=== PATIENT | male | born 1975 | race African-American/Black ===

== ENCOUNTER 2017-03-27 00:20 | Emergency (ER) | payer OTHER ==
[~2017-03-27] VITALS: Ht 170.2 cm; Wt 83.9 kg
--- NOTE | 2017-03-27 03:44 | ED SKIN/ALLERGY COMPLAINT ---
History of Present Illness General Chief Complaint: Ear Complaints Stated Complaint: "COUGHT MT LT EAR ON A REEL" WHILE AT WORK Source: patient Exam Limitations: no limitations Vital Signs & Intake/Output Vital Signs & Intake/Output Vital Signs Date Time Temp Pulse Resp B/P B/P Pulse O2 O2 Flow FiO2 Mean Ox Delivery Rate 03/27 0350 98.7 77 18 160/82 98 Room Air 03/27 0137 98.2 73 18 161/92 100 Room Air Allergies Coded Allergies: No Known Drug Allergies (NKDA 03/27/17) Reconcile Medications Cephalexin 750 MG CAPSULE 1 CAP PO BID ear wound Triage Note: PT TO ED C/O LACERATION TO LEFT EAR WHILE AT WORK AT 2330. STATES EAR GOT CAUGHT ON A REEL, DID NOT GET STRUXCK IN THE HEAD. DENIES LOC NEEDS TETANUS Triage Nurses Notes Reviewed? yes Onset: Just prior to arrival Duration: hour(s):, constant, continues in ED Timing: single episode today Severity: severe Location: left ear HPI: Patient cut left ear on a railing at work. Past History Travel History Traveled to [place] past 21 day No Medical History Any Pertinent Medical History? see below for history Cardiovascular: hypertension Surgical History Surgical History: non-contributory Psychosocial History What is your primary language Lithuanian Tobacco Use: Quit >30 days ago ETOH Use: occasional use Illicit Drug Use: denies illicit drug use Family History Hx Contributory? No Review of Systems Review of Systems Constitutional: Reports: no symptoms. EENTM: Reports: see HPI. Respiratory: Reports: no symptoms. Cardiovascular: Reports: no symptoms. GI: Reports: no symptoms. Genitourinary: Reports: no symptoms. Musculoskeletal: Reports: no symptoms. Skin: Reports: no symptoms. Neurological/Psychological: Reports: no symptoms. Hematologic/Endocrine: Reports: no symptoms. Immunologic/Allergic: Reports: no symptoms. All Other Systems: Reviewed and Negative Physical Exam Physical Exam General Appearance: see below Comments: Gen.: Well-nourished, well-developed, no acute respiratory distress. Head: Normocephalic, atraumatic. Eyes: Normal inspection bilaterally Ears: left ear: laceration of inferior pinna, full thickness involving anterior and posterior aspects of pinna cartilage visible. Nose: Normal inspection Throat/mouth : Moist mucosa Neck: Supple, full range of motion, no goiter Heart: Regular rate and rhythm, no murmurs rubs or gallops Lungs: Clear to auscultation bilaterally with normal air entry Chest: Nontender Back: Normal range of motion Extremities: Normal range of motion grossly Neurologic: Cranial nerves grossly intact, speech is clear, gait stable Skin: warm and dry Psychiatric: Calm, cooperative, no apparent delusions or hallucinations Progress Differential Diagnosis: laceration Plan of Care: Current Medications Sig/Tc Start time Last Medication Dose Stop Time Status Admin Lidocaine 20 ML ONCE ONE 03/27 345 UNVr (Lidocaine 1%) 03/27 346 Tetanus/Diphtheria 0.5 ML ONCE ONE 03/27 345 UNVr Toxoids Adsorbed 03/27 346 (Decavac) Comments: Pressure dressing applied to prevent hematoma formation. Departure Departure Disposition: HOME OR SELF CARE Condition: Stable Clinical Impression Primary Impression: Laceration of left ear Qualifiers: Encounter type: initial encounter Qualified Code: S01.312A - Laceration without foreign body of left ear, initial encounter Referrals: PATIENT HAS NO PRIMARY CARE DR (PCP/Family) Additional Instructions: Wash your wound daily gently with soapy water beginning tomorrow night. If necessary use small amounts of hydrogen peroxide on a Q-tip to keep the sutures clean. Ibuprofen 600 mg every 6 hours as needed for pain. Cool compresses to any swelling. Have the sutures removed in 5 days. Return if any concerns or sudden worsening. Thank you for choosing the [facility] for your care. It was a pleasure to serve you today. Matthew Vigil M.D. [facility] Departure Forms: Customer Survey Employee [employer] General Discharge Information Prescriptions: Current Visit Scripts Cephalexin 1 CAP PO BID #[id number] CAP Procedures Laceration/Wound Repair Laceration/Wound Repair: Wound Location: ear Wound's Depth, Shape: irregular, linear, subcutaneous Wound Length (cm): 3.3 Wound Explored: clean, no foreign body removed, irrigated extensively Irrigated w/ Saline (ccs): 180 Betadine Prep? Yes Anesthesia: 1% lidocaine Volume Anesthetic (ccs): 4 Wound Debrided: minimal Wound Repaired With: sutures Suture Size/Type: 6:0, nylon Number of Sutures: 7 Layer Closure? No
[2017-03-27 03:50] VITALS: BP 160/82
[2017-03-27] MEDS ORDERED: CEPHALEXIN750 MG PO (03:52)
== END 2017-03-27 03:54 ==
LOC: ERH 00:20
DX: S01.312A Laceration without foreign body of left ear, initial encounter (principal); W45.8XXA Other foreign body or object entering through skin, initial encounter; Y93.9 Activity, unspecified; Y92.9 Unspecified place or not applicable
CPT/HCPCS: 90471; 90714